=== PATIENT | male | born 1995 | race American Indian/Alaskan Native ===

== ENCOUNTER 2017-01-22 07:11 | Emergency (ER) | payer MEDICAID, OTHER ==
--- NOTE | 2017-01-22 07:21 | EDM.PDOC ---
ED HPI GENERAL MEDICAL PROBLEM - General Chief Complaint: ENT Problem Stated Complaint: THROAT Time Seen by Provider: 01/22/17 07:17 Source of Information: Reports: Patient, Old Records, RN, RN Notes Reviewed History Limitations: Reports: No Limitations - History of Present Illness INITIAL COMMENTS - FREE TEXT/NARRATIVE: C/O sore throat that began 2 days ago. Pt c/o fever/chills, and sore throat with mild clear nasal drainage. Denies cough, abdominal pain, N/V, or any other Sx's. Onset: Today Duration: Constant Location: Reports: Other (throat) Severity: Moderate Improves with: Reports: None Worsens with: Reports: None Associated Symptoms: Reports: No Other Symptoms Throat Pain Score (Numeric/FACES): 4 - Related Data Allergies Allergy/AdvReac Type Severity Reaction Status Date / Time No Known Allergies Allergy Verified 01/22/17 07:18 Home Meds: Home Meds . [No Known Home Meds] 10/09/13 [History] Past Medical History - Past Health History Medical/Surgical History: Denies Medical/Surgical History Other Dermatologic History: crusted over rash to entire face and also a [id number] area to left inner calf. Social & Family History - Family History Family Medical History: Noncontributory - Tobacco Use Smoking Status *Q: Never Smoker Second Hand Smoke Exposure: No - Recreational Drug Use Recreational Drug Use: No - Living Situation & Occupation Living situation: Reports: with Family Occupation: Employed ED ROS ENT - Review of Systems Review Of Systems: ROS reveals no pertinent complaints other than HPI. ED EXAM, ENT - Physical Exam Exam: See Below Exam Limited By: No Limitations General Appearance: Alert, WD/WN, No Apparent Distress Eye Exam: Bilateral Eye: Normal Inspection Ears: Normal External Exam, Normal Canal, Hearing Grossly Normal, Normal TMs Nose: Normal Mucousa, No Blood, Nasal Discharge (mild, clear) Mouth/Throat: Normal Gums, Normal Lips, Normal Teeth, Pharyngeal Erythema. No: Tonsillar Exudates Head: Atraumatic, Normocephalic Neck: Normal Inspection, Supple, Non-Tender, Full Range of Motion Respiratory/Chest: No Respiratory Distress, Lungs Clear, Normal Breath Sounds, No Accessory Muscle Use, Chest Non-Tender Cardiovascular: Regular Rate, Rhythm GI/Abdominal: Normal Bowel Sounds, Soft, No Distention Back: Normal Inspection Extremities: Normal Inspection Neurological: Alert, Oriented, CN II-XII Intact, Normal Cognition, Normal Gait, No Motor/Sensory Deficits Psychiatric: Normal Affect, Normal Mood Skin: Warm, Dry, Intact, Normal Color, No Rash Course - Vital Signs Last Recorded V/S: Last Vital Signs Temp 36.7 C 01/22/17 07:20 Pulse 105 H 01/22/17 07:20 Resp 16 01/22/17 07:20 BP 137/76 01/22/17 07:20 Pulse Ox 99 01/22/17 07:20 - Orders/Labs/Meds Orders: Active Orders 24 hr Category Date Time Status CULTURE STREP A CONFIRMATION [RM] Stat Lab 01/22/17 07:17 Results STREP SCRN A RAPID W CULT CONF [RM] Stat Lab 01/22/17 07:17 Results Labs: Rapid strep: Negative Departure - Departure Time of Disposition: 07:50 Disposition: Home, Self-Care 01 Condition: good Clinical Impression: Pharyngitis Qualifiers: Pharyngitis/tonsillitis etiology: unspecified etiology Qualified Code(s): J02.9 - Acute pharyngitis, unspecified - Discharge Information Instructions: Pharyngitis, [id number] Forms: ED Department Discharge Additional Instructions: Frequent saltwater gargles until improved. Follow up in clinic if not improved in 3 to 4 days. - My Orders Last 24 Hours: My Active Orders 01/22/17 07:17 CULTURE STREP A CONFIRMATION [RM] Stat STREP SCRN A RAPID W CULT CONF [RM] Stat - Assessment/Plan Last 24 Hours: My Active Orders 01/22/17 07:17 CULTURE STREP A CONFIRMATION [RM] Stat STREP SCRN A RAPID W CULT CONF [RM] Stat
[2017-01-22 07:22] VITALS: BP 137/76
== END 2017-01-22 07:55 | disposition home or self-care (01) ==
LOC: DL.ED 07:11
DX: J02.9 Acute pharyngitis, unspecified (principal)
CPT/HCPCS: 87081; 87430; 99283

== ENCOUNTER 2017-01-26 18:13 | Emergency (ER) | payer OTHER ==
[2017-01-26 21:28] VITALS: BP 150/79
[2017-01-26 21:31] LABS: CHLORIDE,CL 98 mmol/L (101-111); SODIUM,NA 139 mmol/L (135-145)
[2017-01-26] MEDS ORDERED: Amoxicillin 500 MG Cap PO ONE (21:36)
--- NOTE | 2017-01-26 21:39 | EDM.PDOC ---
ED HPI GENERAL MEDICAL PROBLEM - General Chief Complaint: ENT Problem Stated Complaint: HX OF THROAT PROBLEMS, [id number] Time Seen by Provider: 01/26/17 21:00 Source of Information: Reports: Patient History Limitations: Reports: No Limitations - History of Present Illness INITIAL COMMENTS - FREE TEXT/NARRATIVE: sore throat one week, seen in ED 3 days ago, not improving, unable to eat, taking fluids ok. Quality: Reports: Stabbing Severity: Moderate Throat Pain Score (Numeric/FACES): 5 - Related Data Allergies Allergy/AdvReac Type Severity Reaction Status Date / Time No Known Allergies Allergy Verified 01/26/17 19:42 Home Meds: Home Meds . [No Known Home Meds] 10/09/13 [History] Past Medical History - Past Health History Medical/Surgical History: Denies Medical/Surgical History Other Dermatologic History: crusted over rash to entire face and also a [id number] area to left inner calf. - Infectious Disease History Infectious Disease History: Reports: None Social & Family History - Family History Family Medical History: Noncontributory - Tobacco Use Smoking Status *Q: Never Smoker Second Hand Smoke Exposure: No - Caffeine Use Caffeine Use: Reports: Soda - Recreational Drug Use Recreational Drug Use: No - Living Situation & Occupation Living situation: Reports: with Family Occupation: Employed ED ROS ENT - Review of Systems Review Of Systems: ROS reveals no pertinent complaints other than HPI. ED EXAM, ENT - Physical Exam Exam: See Below Exam Limited By: No Limitations General Appearance: Alert, Mild Distress Ears: Normal External Exam, Normal TMs Nose: Normal Inspection Mouth/Throat: Pharyngeal Erythema ( and ulcerations to posterior soft palate on left.), Tonsillar Exudates, Tonsillar Swelling, Uvular Edema. No: Uvular Deviation Head: Atraumatic, Normocephalic Neck: Lymphadenopathy (L), Lymphadenopathy (R) Respiratory/Chest: No Respiratory Distress Cardiovascular: Normal Peripheral Pulses, Regular Rate, Rhythm GI/Abdominal: Normal Bowel Sounds Back: Normal Inspection Neurological: Alert, Oriented Skin: Warm, Dry, Intact, Normal Color Course - Vital Signs Last Recorded V/S: Last Vital Signs Temp 98.6 F 01/26/17 21:26 Pulse 106 H 01/26/17 21:26 Resp 20 01/26/17 21:26 BP 150/79 H 01/26/17 21:26 Pulse Ox 99 01/26/17 21:26 - Orders/Labs/Meds Orders: Active Orders 24 hr Category Date Time Status CULTURE STREP A CONFIRMATION [] Stat Lab 01/26/17 19:45 Results STREP SCRN A RAPID W CULT CONF [] Stat Lab 01/26/17 19:45 Results Labs: Laboratory Tests 01/26/17 01/26/17 Range/Units 20:45 20:45 WBC 9.4 (5.0-10.0) 10^3/uL RBC 4.68 (4.6-6.2) 10^6/uL Hgb 14.9 (14.0-18.0) g/dL Hct 42.6 (40.0-54.0) % MCV 91.0 (80-100) fL MCH 31.8 (27.0-34.0) pg MCHC 35.0 (33.0-35.0) g/dL Plt Count 260 (150-450) 10^3/uL Neut % (Auto) 65.4 (42.2-75.2) % Lymph % (Auto) 18.9 L (20.5-50.1) % Green % (Auto) 15.2 H (2-8) % Eos % (Auto) 0.3 L (1.0-3.0) % Baso % (Auto) 0.2 (0.0-1.0) % Add Manual Diff Yes Neutrophils % (Manual) 72 % Lymphocytes % (Manual) 16 % Monocytes % (Manual) 11 % Eosinophils % (Manual) 1 % Sodium 139 (135-145) mmol/L Potassium 3.7 (3.6-5.0) mmol/L Chloride 98 L (101-111) mmol/L Carbon Dioxide 28.0 (21.0-31.0) mmol/L Anion Gap 16.7 BUN 9 (7-18) mg/dL Creatinine 0.8 (0.6-1.3) mg/dL Est Cr Clr Drug Dosing 179.33 mL/min Estimated GFR (MDRD) > 60 BUN/Creatinine Ratio 11.25 Glucose 82 (74-105) mg/dL Calcium 9.0 (8.4-10.2) mg/dl Total Bilirubin 0.7 (0.2-1.0) mg/dL AST 18 (10-42) IU/L ALT 22 (10-60) IU/L Alkaline Phosphatase 66 (42-121) IU/L Total Protein 7.5 (6.7-8.2) g/dl Albumin 4.2 (3.2-5.5) g/dl Globulin 3.3 Albumin/Globulin Ratio 1.27 Monoscreen Negative Meds: Medications Discontinued Medications Generic Name Dose Route Start Last Admin Trade Name Sofia PRN Reason Stop Dose Admin Amoxicillin 500 mg 01/26/17 21:36 01/26/17 21:43 Amoxil PO 01/26/17 21:37 500 mg ONETIME ONE Administration Departure - Departure Time of Disposition: 21:33 Disposition: Home, Self-Care 01 Condition: fair Clinical Impression: Tonsillitis - Discharge Information Instructions: Pharyngitis Forms: ED Department Discharge Additional Instructions: increase fluid intake alternate tylenol and ibuprofen every 4 hours for discomfort chloraseptic throat sray as needed salt water gargles amoxicillin 500mg one three times daily for one week follwo up if any worsening of symptoms - My Orders Last 24 Hours: My Active Orders 01/26/17 19:45 CULTURE STREP A CONFIRMATION [] Stat STREP SCRN A RAPID W CULT CONF [] Stat - Assessment/Plan Last 24 Hours: My Active Orders 01/26/17 19:45 CULTURE STREP A CONFIRMATION [] Stat STREP SCRN A RAPID W CULT CONF [] Stat
== END 2017-01-26 21:46 | disposition home or self-care (01) ==
LOC: DL.ED 18:13
DX: J03.90 Acute tonsillitis, unspecified (principal)
CPT/HCPCS: 36415; 80053; 85025; 86308; 87081; 87430; 99283; A9270

== ENCOUNTER 2018-02-23 06:51 | Emergency (ER) | payer MEDICAID, OTHER ==
--- NOTE | 2018-02-23 07:05 | EDM.PDOC ---
ED HPI GENERAL MEDICAL PROBLEM - General Chief Complaint: Flank Pain Stated Complaint: ? KIDNEY STONE Time Seen by Provider: 02/23/18 07:05 Source of Information: Reports: Patient, Old Records, RN, RN Notes Reviewed History Limitations: Reports: No Limitations - History of Present Illness INITIAL COMMENTS - FREE TEXT/NARRATIVE: Pt presents to ER from home by POV with c/o left flank pain, nausea, vomiting, and decreased urine flow. He states that [place] was [place] 3 [place] when he developed a similar pain and was diagnosed with a left 5mm kidney stone by CT scan. He was prescribed oxycodone, and flomax, but the pain went away even though he never passed the stone, so he stopped the medications last week. He denies bloody urine, fever, chills, diarrhea, or constipation. 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 [No Known Home Meds] 10/09/13 [History] Past Medical History Genitourinary History: Reports: Renal Calculus Other Dermatologic History: crusted over rash to entire face and also a [id number] area to left inner calf. - Infectious Disease History Infectious Disease History: Reports: None Social & Family History - Family History Family Medical History: Noncontributory - Caffeine Use Caffeine Use: Reports: Soda - Living Situation & Occupation Living situation: Reports: with Family Occupation: Employed ED ROS GENERAL - Review of Systems Review Of Systems: ROS reveals no pertinent complaints other than HPI. ED EXAM, RENAL/ - Physical Exam Exam: See Below Exam Limited By: No Limitations General Appearance: Alert, WD/WN, No Apparent Distress Ears: Normal External Exam, Hearing Grossly Normal Nose: Normal Inspection Throat/Mouth: Normal Inspection, Normal Lips, Normal Voice, No Airway Compromise Head: Atraumatic, Normocephalic Neck: Normal Inspection, Supple, Non-Tender, Full Range of Motion Respiratory/Chest: No Respiratory Distress, Lungs Clear, Normal Breath Sounds, No Accessory Muscle Use, Chest Non-Tender Cardiovascular: Normal Peripheral Pulses, Regular Rate, Rhythm, No Edema, No Murmur, Tachycardia GI/Abdominal: Normal Bowel Sounds, Soft, Non-Tender, No Organomegaly, No Distention, No Abnormal Bruit, No Mass (Male) Exam: Deferred Rectal (Males) Exam: Deferred Back Exam: Normal Inspection, Full Range of Motion, CVA Tenderness (L). No: CVA Tenderness (R), Vertebral Tenderness Extremities: Normal Inspection, Normal Range of Motion, Non-Tender, No Pedal Edema Neurological: Alert, Oriented, Normal Cognition, Normal Gait, No Motor/Sensory Deficits Psychiatric: Normal Affect, Normal Mood Skin Exam: Warm, Dry, Intact, Normal Color, No Rash Course - Vital Signs Last Recorded V/S: Last Vital Signs Temp 36.2 C 02/23/18 09:02 Pulse 91 02/23/18 09:02 Resp 14 02/23/18 09:02 BP 127/72 02/23/18 09:02 Pulse Ox 95 02/23/18 09:02 - Orders/Labs/Meds Orders: Active Orders 24 hr Category Date Time Status Peripheral IV Care [RC] . DIRECTED Care 02/23/18 07:13 Active CULTURE URINE [RM] Stat Lab 02/23/18 07:25 Received DRUG SCREEN URINE BIORAD [URCHEM] Stat Lab 02/23/18 07:25 Ordered UA W/MICROSCOPIC [URIN] Stat Lab 02/23/18 07:25 Ordered Sodium Chloride 0.9% [Saline Flush] Med 02/23/18 07:13 Active 10 ml FLUSH ASDIRECTED PRN Peripheral IV Insertion Adult [OM.PC] Stat Oth 02/23/18 07:13 Ordered Medication Orders Sodium Chloride (Saline Flush) 10 ml FLUSH ASDIRECTED PRN PRN Reason: Keep Vein Open Last Admin: 02/23/18 07:47 Dose: 10 ml Labs: Laboratory Tests 02/23/18 02/23/18 02/23/18 Range/Units 07:16 07:16 07:25 WBC 17.4 H (5.0-10.0) 10^3/uL RBC 4.77 (4.6-6.2) 10^6/uL Hgb 15.1 (14.0-18.0) g/dL Hct 42.0 (40.0-54.0) % MCV 88.1 (80-100) fL MCH 31.7 (27.0-34.0) pg MCHC 36.0 H (33.0-35.0) g/dL Plt Count 259 (150-450) 10^3/uL Neut % (Auto) 85.7 H (42.2-75.2) % Lymph % (Auto) 6.1 L (20.5-50.1) % [place] % (Auto) 8.0 (2-8) % Eos % (Auto) 0.1 L (1.0-3.0) % Baso % (Auto) 0.1 (0.0-1.0) % Sodium 132 L (135-145) mmol/L Potassium 3.4 L (3.6-5.0) mmol/L Chloride 96 L (101-111) mmol/L Carbon Dioxide 26.0 (21.0-31.0) mmol/L Anion Gap 13.4 BUN 17 (7-18) mg/dL Creatinine 1.1 (0.6-1.3) mg/dL Est Cr Clr Drug Dosing 125.90 mL/min Estimated GFR (MDRD) > 60 Glucose 106 H (74-105) mg/dL Calcium 9.1 (8.4-10.2) mg/dl Urine Color Yellow (YELLOW) Urine Appearance Clear (CLEAR) Urine pH 7.0 (5.0-9.0) Ur Specific [place] 1.020 (1.005-1.030) Urine Protein Trace H (NEGATIVE) Urine Glucose (UA) Negative (NEGATIVE) Urine Ketones Negative (NEGATIVE) Urine Occult Blood Moderate H (NEGATIVE) Urine Nitrite Negative (NEGATIVE) Urine Bilirubin Negative (NEGATIVE) Urine Urobilinogen 0.2 (0.2-1.0) mg/dL Ur Leukocyte Esterase Negative (NEGATIVE) Urine RBC 20-30 H /HPF Urine WBC 0-5 (0-5/HPF) /HPF Ur Epithelial Cells Rare /HPF Amorphous Sediment Few (0/HPF) /HPF Urine Bacteria Few (0-FEW/HPF) /HPF Urine Mucus Moderate H /LPF Urine Opiates Screen (NEGATIVE) Ur Oxycodone Screen (NEGATIVE) Urine Methadone Screen (NEGATIVE) Ur Barbiturates Screen (NEGATIVE) U Tricyclic Antidepress (NEGATIVE) Ur Phencyclidine Scrn (NEGATIVE) Ur Amphetamine Screen (NEGATIVE) U Methamphetamines Scrn (NEGATIVE) Urine MDMA Screen (NEGATIVE) U Benzodiazepines Scrn (NEGATIVE) Urine Cocaine Screen (NEGATIVE) U Marijuana (THC) Screen (NEGATIVE) 02/23/18 Range/Units 07:25 WBC (5.0-10.0) 10^3/uL RBC (4.6-6.2) 10^6/uL Hgb (14.0-18.0) g/dL Hct (40.0-54.0) % MCV (80-100) fL MCH (27.0-34.0) pg MCHC (33.0-35.0) g/dL Plt Count (150-450) 10^3/uL Neut % (Auto) (42.2-75.2) % Lymph % (Auto) (20.5-50.1) % [place] % (Auto) (2-8) % Eos % (Auto) (1.0-3.0) % Baso % (Auto) (0.0-1.0) % Sodium (135-145) mmol/L Potassium (3.6-5.0) mmol/L Chloride (101-111) mmol/L Carbon Dioxide (21.0-31.0) mmol/L Anion Gap BUN (7-18) mg/dL Creatinine (0.6-1.3) mg/dL Est Cr Clr Drug Dosing mL/min Estimated GFR (MDRD) Glucose (74-105) mg/dL Calcium (8.4-10.2) mg/dl Urine Color (YELLOW) Urine Appearance (CLEAR) Urine pH (5.0-9.0) Ur Specific [place] (1.005-1.030) Urine Protein (NEGATIVE) Urine Glucose (UA) (NEGATIVE) Urine Ketones (NEGATIVE) Urine Occult Blood (NEGATIVE) Urine Nitrite (NEGATIVE) Urine Bilirubin (NEGATIVE) Urine Urobilinogen (0.2-1.0) mg/dL Ur Leukocyte Esterase (NEGATIVE) Urine RBC /HPF Urine WBC (0-5/HPF) /HPF Ur Epithelial Cells /HPF Amorphous Sediment (0/HPF) /HPF Urine Bacteria (0-FEW/HPF) /HPF Urine Mucus /LPF Urine Opiates Screen Negative (NEGATIVE) Ur Oxycodone Screen Positive H (NEGATIVE) Urine Methadone Screen Negative (NEGATIVE) Ur Barbiturates Screen Negative (NEGATIVE) U Tricyclic Antidepress Negative (NEGATIVE) Ur Phencyclidine Scrn Negative (NEGATIVE) Ur Amphetamine Screen Negative (NEGATIVE) U Methamphetamines Scrn Negative (NEGATIVE) Urine MDMA Screen Negative (NEGATIVE) U Benzodiazepines Scrn Negative (NEGATIVE) Urine Cocaine Screen Negative (NEGATIVE) U Marijuana (THC) Screen Negative (NEGATIVE) Meds: Medications Generic Name Dose Route Start Last Admin Trade Name Freq PRN Reason Stop Dose Admin Sodium Chloride 10 ml 02/23/18 07:13 02/23/18 07:47 Saline Flush FLUSH 10 ml ASDIRECTED PRN Administration Keep Vein Open Discontinued Medications Generic Name Dose Route Start Last Admin Trade Name Freq PRN Reason Stop Dose Admin Ceftriaxone Sodium 1 gm 02/23/18 08:44 02/23/18 09:01 Rocephin IVPUSH 02/23/18 08:45 1 gm ONETIME ONE Administration Hydromorphone HCl 1 mg 02/23/18 07:28 02/23/18 07:47 Dilaudid IVPUSH 02/23/18 07:29 1 mg ONETIME ONE Administration Sodium Chloride 1,000 mls @ 999 mls/hr 02/23/18 07:13 02/23/18 07:47 Normal Saline IV 02/23/18 08:13 999 mls/hr .BOLUS ONE Administration Ketorolac Tromethamine 30 mg 02/23/18 07:28 02/23/18 07:47 Toradol IVPUSH 02/23/18 07:29 30 mg ONETIME ONE Administration Ondansetron HCl 4 mg 02/23/18 07:28 02/23/18 07:46 Zofran IV 02/23/18 07:29 4 mg ONETIME ONE Administration Tamsulosin HCl 0.4 mg 02/23/18 07:28 02/23/18 07:47 Flomax PO 02/23/18 07:29 0.4 mg ONETIME ONE Administration - Radiology Interpretation Free Text/Narrative:: CT Abd/Pelvis: Left hydronephrosis w/perinephric fat stranding, left hydroureter with a distal 3mm stone lodged near the bladder trigone associated with high grade obstructive uropathy per Rad. report. CT Results Date: 02/23/18 - Re-Assessments/Exams Free Text/Narrative Re-Assessment/Exam: 02/23/18 09:02 I consulted [facility] via [facility] nurse, [facility] is unable to accept any cases that potentially may need OR/Cath/Endo services at this time. I consulted Dr. Delarosa of [facility] via [facility]. Dr. Delarosa agrees to consult if the pt is admitted by the hospitalist today. Pt is stable and prefers to transfer by POV with his to drive him. He agrees to go straight to [facility] for admission, and is instructed to maintain strict NPO status. Dr. Jackson accepts the pt in transfer to his hospitalist service at the [facility] off of [address]. Departure - Departure Time of Disposition: 09:26 Disposition: DC/Tfer to Acute Hospital 02 Condition: Serious Clinical Impression: Hydronephrosis with urinary obstruction due to ureteral calculus, Calculus of distal left ureter - Discharge Information Forms: ED Department Discharge, Interfacility Transfer EMTALA - My Orders Last 24 Hours: My Active Orders 02/23/18 07:13 Peripheral IV Care [RC] . DIRECTED Sodium Chloride 0.9% [Saline Flush] 10 ml FLUSH ASDIRECTED PRN Peripheral IV Insertion Adult [OM.PC] Stat 02/23/18 07:25 CULTURE URINE [RM] Stat DRUG SCREEN URINE BIORAD [URCHEM] Stat UA W/MICROSCOPIC [URIN] Stat - Assessment/Plan Last 24 Hours: My Active Orders 02/23/18 07:13 Peripheral IV Care [RC] . DIRECTED Sodium Chloride 0.9% [Saline Flush] 10 ml FLUSH ASDIRECTED PRN Peripheral IV Insertion Adult [OM.PC] Stat 02/23/18 07:25 CULTURE URINE [RM] Stat DRUG SCREEN URINE BIORAD [URCHEM] Stat UA W/MICROSCOPIC [URIN] Stat
[2018-02-23] MEDS ORDERED: Sodium Chloride 0.9% 1,000 ML IV ONE (07:13)
[2018-02-23] MEDS ORDERED: Sodium Chloride 0.9% 10 ML Syringe FLUSH PRN (07:13)
[2018-02-23] MEDS ORDERED: Ondansetron 4 MG/2 ML SDV IV ONE (07:28)
[2018-02-23] MEDS ORDERED: HYDROmorphone 0.5 MG/0.5 ML Syringe IVPUSH ONE (07:28)
[2018-02-23] MEDS ORDERED: Ketorolac 30 MG/ML SDV IVPUSH ONE (07:28)
[2018-02-23] MEDS ORDERED: Tamsulosin 0.4 MG Cap.ER PO ONE (07:28)
[2018-02-23 07:50] LABS: ANION GAP 13.4; CHLORIDE,CL 96 mmol/L (101-111); SODIUM,NA 132 mmol/L (135-145)
--- NOTE | 2018-02-23 08:21 | CT ---
Clinical history: 22-year-old 250 pound male with left flank pain and history of "proximal left renal stone" on 05 February 2018. Scan technique: Volume acquisition of data emergency unenhanced CT scan of the abdomen and pelvis (ki dneys/ureters/bladder) obtained while the patient was lying supine on the Siemens multi slice scanner [place], [place]. All data archived in the PACS system for storage, r eformatting axial/sagittal/coronal planes and study. Interpretation: Abnormal. 1. Asymmetrically larger left kidney with abnormal dilatation of the left pyelocalyceal collecting sy stem and entire left ureter. 2. *Solitary 3 mm diameter calcification (stone) lodged in the distal left ureter near the bladder tr igone (proximal ureteral dilatation). 3. A second tiny punctate (submillimeter) calcification mid pole calyx of the left kidney. 4. No sign of renal cortical mass lesion, nephrolithiasis or obstructive uropathy right kidney. 5. Dominant aorta and lumbar spine unremarkable. Normal gallbladder, unenhanced liver, stomach, splee n, pancreas, adrenals. 6. No pelvic or abdominal mass lesion, laboratory "dirty" peritoneal fat, signs of mechanical bowel o bstruction, ascites or free air. 7. Lung bases clear. CONCLUSION: Distal left ureterolith with associated high-grade obstructive uropathy.
[2018-02-23] MEDS ORDERED: cefTRIAXone 1 GM Vial IVPUSH ONE (08:44)
[2018-02-23 09:02] VITALS: BP 127/72
== END 2018-02-23 10:01 ==
LOC: DL.ED 06:51
DX: N13.2 Hydronephrosis with renal and ureteral calculous obstruction (principal)
CPT/HCPCS: 36415; 74176; 80048; 80305; 81001; 85025; 87086; 96361; 96374; 96375; 99284; 99285; A9270; J0696; J1170; J1885; J2405; J7030; J7050

== ENCOUNTER 2022-06-25 22:52 | Emergency (ER) | payer OTHER ==
[2022-06-25] MEDS ORDERED: Sodium Chloride 0.9% 10 ML Syringe FLUSH PRN (23:24)
[2022-06-25] MEDS ORDERED: fentaNYL 100 MCG/2 ML SDV IVPUSH ONE (23:26)
[2022-06-25] MEDS ORDERED: Sodium Chloride 0.9% 1,000 ML IV ONE (23:26)
[2022-06-25 23:37] VITALS: BP 159/103; PULSE 96
[2022-06-25] MEDS ORDERED: Ketorolac 30 MG/ML SDV IVPUSH ONE (23:57)
[2022-06-25] MEDS ORDERED: Tamsulosin 0.4 MG Cap.ER PO ONE (23:57)
[2022-06-26 00:33] LABS: ANION GAP 11.4 mEq/L (7-13); CHLORIDE,CL 101 mmol/L (98-107); ESTIMATED GFR 124 mL/min (>=60); SODIUM,NA 138 mmol/L (136-145)
[2022-06-26] MEDS ORDERED: cefTRIAXone 1 GM in Sodium Chloride 0.9% 50 ML IV ONE (00:39)
[2022-06-26] MEDS ORDERED: diphenhydrAMINE 50 MG Cap PO ONE (01:18)
== END 2022-06-26 01:02 | disposition home or self-care (01) ==
LOC: DL.ED 22:52
DX: N13.2 Hydronephrosis with renal and ureteral calculous obstruction (principal)
CPT/HCPCS: 36415; 74176; 80053; 81001; 85025; 87086; 96365; 96375; 99284; A9270; J0696; J1885; J3010; J7030; Q0163

== ENCOUNTER 2022-07-08 22:32 | Emergency (ER) | payer SELFPAY ==
[2022-07-08 22:47] VITALS: BP 150/107; PULSE 100
[2022-07-08] MEDS ORDERED: Sodium Chloride 0.9% 10 ML Syringe FLUSH PRN (22:48)
[2022-07-08] MEDS ORDERED: Ketorolac 30 MG/ML SDV IVPUSH ONE (23:02)
[2022-07-08] MEDS ORDERED: Sodium Chloride 0.9% 1,000 ML IV ONE (23:02)
[2022-07-08 23:39] LABS: ANION GAP 12.6 mEq/L (7-13); CHLORIDE,CL 96 mmol/L (98-107); SODIUM,NA 133 mmol/L (136-145)
[2022-07-08 23:41] LABS: ESTIMATED GFR 100 mL/min (>=60)
[2022-07-08] MEDS ORDERED: Iopamidol 612 MG/ML 100 ML Bottle IVPUSH ONE (23:45)
[2022-07-09] MEDS ORDERED: Sodium Chloride 0.9% 1,000 ML IV ONE (00:14)
== END 2022-07-09 01:08 | disposition home or self-care (01) ==
LOC: DL.ED 22:32
DX: N13.2 Hydronephrosis with renal and ureteral calculous obstruction (principal); E86.0 Dehydration; F17.210 Nicotine dependence, cigarettes, uncomplicated; Z88.1 Allergy status to other antibiotic agents
CPT/HCPCS: 36415; 74178; 80053; 81001; 83605; 84145; 85025; 86140; 96361; 96374; 99284; J1885; J3490; J7030; Q9967